=== PATIENT | male | born 1950 | race Caucasian/White ===

== ENCOUNTER 2020-12-25 20:14 | Emergency (ER) | payer OTHER ==
[2020-12-25 20:21] VITALS: BP 136/83; PULSE 99; TEMP 98.5; BMI 29.7
[2020-12-25] MEDS ORDERED: DIPHTH,PERTUSS(ACELL),TET 0.5 ML DISP.SYRIN IM ONE ×2 (20:54→21:21)
[2020-12-25] MEDS ORDERED: RABIES IMMUNE GLOBULIN 300 UNITS/1 ML VIAL IM ONE (20:54)
[2020-12-25] MEDS ORDERED: RABIES VACCINE (PCEC)/PF 2.5 UNIT/VIAL IM ONE ×2 (20:54→21:23)
[2020-12-25] MEDS ORDERED: AMOX TR/POT CLAV 875MG/125MG TABLETS (FP) PO ONE (20:57)
[2020-12-25] MEDS ORDERED: AMOX TR/POT CLAV 875MG/125MG TABLETS (FP) ONE (21:22)
[2020-12-25] MEDS ORDERED: RABIES IMMUNE GLOBULIN 300 UNITS/1 ML VIAL ONE ×3 (21:22→21:54)
== END 2020-12-25 22:38 | disposition home or self-care (01) ==
LOC: JER 20:14 → JERFT 20:14
PROC: 3E0234Z Introduction of Serum, Toxoid and Vaccine into Muscle, Percutaneous Approach (ICD-10-PCS; principal; 2020-12-25)
PROC: 3E0234Z Introduction of Serum, Toxoid and Vaccine into Muscle, Percutaneous Approach (ICD-10-PCS; 2020-12-25)
PROC: 3E0234Z Introduction of Serum, Toxoid and Vaccine into Muscle, Percutaneous Approach (ICD-10-PCS; 2020-12-25)
DX: S61.251A Open bite of left index finger without damage to nail, initial encounter (principal)
CPT/HCPCS: 90375; 90471; 90675; 90715; 99284-25

== ENCOUNTER 2020-12-28 09:04 | Emergency (ER) | payer OTHER ==
[2020-12-28 09:11] VITALS: BP 138/93; PULSE 95; TEMP 98.2; BMI 30.5
[2020-12-28] MEDS ORDERED: RABIES VACCINE (PCEC)/PF 2.5 UNIT/VIAL IM ONE ×4 (09:35→09:48)
== END 2020-12-28 09:50 | disposition home or self-care (01) ==
LOC: JER 09:04
PROC: 3E0234Z Introduction of Serum, Toxoid and Vaccine into Muscle, Percutaneous Approach (ICD-10-PCS; principal; 2020-12-28)
DX: Z29.14 Encounter for prophylactic rabies immune globulin (principal)
CPT/HCPCS: 90675; 99281-25

== ENCOUNTER 2021-01-01 09:40 | Emergency (ER) | payer OTHER ==
[2021-01-01 09:47] VITALS: BP 140/66; PULSE 84; TEMP 98.5; BMI 30.4
[2021-01-01] MEDS ORDERED: RABIES VACCINE (PCEC)/PF 2.5 UNIT/VIAL IM ONE ×2 (09:54→09:59)
== END 2021-01-01 10:35 | disposition home or self-care (01) ==
LOC: JER 09:40
PROC: 3E0234Z Introduction of Serum, Toxoid and Vaccine into Muscle, Percutaneous Approach (ICD-10-PCS; principal; 2021-01-01)
DX: Z29.14 Encounter for prophylactic rabies immune globulin (principal)
CPT/HCPCS: 90675; 99284-25